=== PATIENT | female | born 1950 | race Caucasian/White ===

== ENCOUNTER 2018-04-04 20:12 | Emergency (ER) | payer MEDICARE, OTHER ==
[2018-04-04 21:40] VITALS: BP 162/62
[2018-04-04] MEDS ORDERED: Acetaminophen/HYDROcodone 325-5 MG Tab PO ONE (22:03)
--- NOTE | 2018-04-04 22:09 | EDM.PDOC ---
ED HPI GENERAL MEDICAL PROBLEM - General Chief Complaint: Lower Extremity Injury/Pain Stated Complaint: LEFT KNEE PAIN Time Seen by Provider: 04/04/18 21:50 Source of Information: Reports: Patient, Old Records History Limitations: Reports: No Limitations - History of Present Illness INITIAL COMMENTS - FREE TEXT/NARRATIVE: 67 yo female originally injured her L knee a few weeks ago [place]. Was limping mildly for most of the time since. Went to the clinic recently and was referred to ortho after an X-ray was done that showed an effusion, but no other pathology. She has been getting by with ibuprofen low dose until now. Since yesterday her pain and swelling have gotten much worse. Now is even having trouble sleeping. Her ortho appt is tomorrow. Has never walked with crutches before. Onset: Gradual Onset Date: 03/16/18 Duration: Week(s):, Getting Worse Location: Reports: Lower Extremity, Left Quality: Reports: Ache Severity: Moderate Improves with: Reports: Rest Worsens with: Reports: Movement Context: Reports: Other (see HPI) Associated Symptoms: Reports: No Other Symptoms Treatments PSYCHOLOGIST RESEARCH ASSISTANT: Reports: NSAIDS, Other (see below) Other Treatments PSYCHOLOGIST RESEARCH ASSISTANT: unknown Left Knee Pain Score (Numeric/FACES): 7 - Related Data Allergies Allergy/AdvReac Type Severity Reaction Status Date / Time nitrofurantoin Allergy Intermediate Rash Verified 02/25/16 08:12 macrocrystalline [From Macrodantin] Sulfa (Sulfonamide Allergy Intermediate Rash Verified 02/25/16 08:12 Antibiotics) Home Meds: Home Meds ALPRAZolam [Alprazolam] 0.5 mg PO PRN 02/09/14 [History] Aspirin 325 mg PO DAILY 02/09/14 [History] Escitalopram [Lexapro] 10 mg PO DAILY 02/09/14 [History] Glucosamine/MSM/Chondrt/C/Hyal [Ra Ervkqpjlqdv-Htnxkr-WHH Tab] 1 tab PO DAILY [History] Multivitamin-Min/Iron/FA/Vit K [Multi-Day Plus Minerals Tablet] 1 each PO DAILY 02/23/16 [History] [place]-3 Fatty Acids [Fish Oil] 1,000 mg PO DAILY 02/23/16 [History] Triamcinolone Acetonide 1 applic TOP PRN 02/25/16 [History] Past Medical History HEENT History: Reports: Cataract, Glaucoma, Impaired Vision, Retinal Detachment , Sinusitis, Other (See Below) Other HEENT History: sclerobuccal; wears glasses Cardiovascular History: Reports: Blood Clots/VTE/DVT, High Cholesterol, Other ( See Below) Other Cardiovascular History: pulmonary embolism Respiratory History: Reports: PE Gastrointestinal History: Reports: Colon Polyp, GERD, Hemorrhoids, Hiatal Hernia Genitourinary History: Reports: UTI, Recurrent PACKING CLERK History: Reports: Spontaneous , Other (See Below) Other PACKING CLERK History: uterine tearing; miscarriage of one twin Psychiatric History: Reports: Anxiety, Depression Endocrine/Metabolic History: Reports: Multinodular Thyroid, Obesity/BMI 30+ Hematologic History: Reports: Other (See Below) Other Hematologic History: factor 8 dissorder Oncologic (Cancer) History: Reports: Basal Cell Carcinoma Dermatologic History: Reports: Cellulitis, Eczema, Other (See Below) Other Dermatologic History: photosensitivity to sun-develops rash - Infectious Disease History Infectious Disease History: Reports: Chicken Pox, Herpes, Influenza, Measles, Mumps, Rubella, Scarlet Fever - Past Surgical History HEENT Surgical History: Reports: Adenoidectomy, Cataract Surgery, Detached Retina, Tonsillectomy Female Surgical History: Reports: Section, Tubal Ligation Endocrine Surgical History: Reports: Thyroid Biopsy Oncologic Surgical History: Reports: Other (See Below) Dermatological Surgical History: Reports: Skin Biopsy Social & Family History - Family History HEENT: Reports: Retinal Detachment Cardiac: Reports: Blood Clots/VTE/DVT, MA, Other (See Below) Other Cardiac Family History: siblings have had: pulmonary embolisms; occluded portal vein, DVT, occluded femoral vein Respiratory: Reports: Asthma, COPD, PE, Sleep Apnea GI: Reports: Diverticulitis : Reports: Other (See Below) Other Family History: Bride's disease, gangrene OBGYN: Reports: Other (See Below) Other OBGYN Family History: ruptured uterus Musculoskeletal: Reports: Arthritis, Gout Neurological: Reports: Migraines Psychiatric: Reports: Anxiety, Depression Endocrine/Metabolic: Reports: Diabetes, type II Hematologic: Reports: Bleeding Disorder, Other (See Below) Other Hematologic Family History: factor V and factor VIII Oncologic: Reports: Breast, Colon, Other (See Below) Other Oncologic Family History: squamous cell carcinoma - Tobacco Use Smoking Status *Q: Never Smoker - Caffeine Use Caffeine Use: Reports: Coffee - Recreational Drug Use Recreational Drug Use: No Review of Systems - Review of Systems Review Of Systems: See Below Constitutional: Reports: No Symptoms Musculoskeletal: Reports: Joint Pain (L knee pain/swelling), Joint Swelling (L knee) Skin: Reports: No Symptoms Neurological: Reports: No Symptoms ED EXAM, GENERAL - Physical Exam Exam: See Below Exam Limited By: No Limitations General Appearance: Alert, WD/WN, No Apparent Distress Extremities: Joint Swelling (moderate effusion L knee), Limited Range of Motion (L knee). No: Non-Tender, Pedal Edema, Increased Warmth, Redness Neurological: Alert, Oriented, CN II-XII Intact, Normal Cognition, No Motor/ Sensory Deficits Psychiatric: Normal Affect, Normal Mood Skin Exam: Warm, Dry, Intact, Normal Color, No Rash Course - Vital Signs Last Recorded V/S: Last Vital Signs Temp 35.8 C 04/04/18 21:40 Pulse 65 04/04/18 21:40 Resp 18 04/04/18 21:40 BP 162/62 H 04/04/18 21:40 Pulse Ox 99 04/04/18 21:40 - Orders/Labs/Meds Meds: Medications Discontinued Medications Generic Name Dose Route Start Last Admin Trade Name Venkata PRN Reason Stop Dose Admin Hydrocodone Bitart/Acetaminophen 2 tab 04/04/18 22:03 04/04/18 22:06 Manlius 325-5 Mg PO 04/04/18 22:04 2 tab ONETIME ONE Administration Departure - Departure Time of Disposition: 22:45 Disposition: Home, Self-Care 01 Condition: Fair Clinical Impression: Tear of meniscus of left knee Qualifiers: Tear current or old: current Encounter type: initial encounter Meniscus of knee : unspecified Meniscus tear of knee type: unspecified type Qualified Code(s): S83.207A - Unspecified tear of unspecified meniscus, current injury, left knee, initial encounter Clinical Impression: (Ruled Out): Acute meniscal tear of left knee, Traumatic tear of meniscus of knee - Discharge Information Referrals: PCP,None [Primary Care Provider] - Forms: ED Department Discharge Additional Instructions: Use [place]lius as needed for pain relief. Use the walker so that you are putting a minimum amount of weight on the affected leg. Keep your appt for tomorrow with orthopedics.
== END 2018-04-04 22:56 | disposition home or self-care (01) ==
LOC: JP.ED 20:12
DX: S83.207A Unspecified tear of unspecified meniscus, current injury, left knee, initial encounter (principal); E78.00 Pure hypercholesterolemia, unspecified; K21.9 Gastro-esophageal reflux disease without esophagitis; Z88.8 Allergy status to other drugs, medicaments and biological substances; Z88.2 Allergy status to sulfonamides; Z79.82 Long term (current) use of aspirin; Z79.899 Other long term (current) drug therapy; X58.XXXA Exposure to other specified factors, initial encounter
CPT/HCPCS: 99283; A9270

== ENCOUNTER 2021-02-25 09:48 | Day surgery (SDC) | payer MEDICARE, OTHER ==
[~2021-02-25 09:48] MED LIST: Midazolam 1 MG/ML 2 ML SDV ONE; Propofol 200 MG/20 ML SDV ONE; fentaNYL 100 MCG/2 ML SDV ONE
[2021-02-25] MEDS ORDERED: Sodium Chloride 0.9% 1,000 ML IV SCH (10:34)
[2021-02-25] MEDS ORDERED: Propofol 200 MG/20 ML SDV ONE (11:09)
[2021-02-25 12:19] VITALS: BP 122/79; PULSE 65
--- NOTE | 2021-02-26 08:10 | OR ---
DATE OF PROCEDURE: 02/25/2021 SURGEON: mOid Reyes MD PROCEDURE: Colonoscopy. FINDINGS: Normal. PREOPERATIVE DIAGNOSIS: Screening colonoscopy. POSTOPERATIVE DIAGNOSIS: Screening colonoscopy. RISKS: Risks, benefits, alternatives, and limitations including, but not limited to infection, bleeding, perforation, false positives and false negatives were explained the patient and she wished to proceed. PROCEDURE IN DETAIL: The patient was placed in left lateral decubitus position. Digital rectal exam was performed without abnormality. Scope was introduced and advanced atraumatically to the ileocecal valve. The scope was brought back through the ascending, transverse, descending colon, and retroflexed. No evidence of old or new blood. No masses. No polyps. The patient had one diverticula. No abnormalities on retroflexion. The prep was acceptable. Approximately 90% of luminal surface could be seen. Greater than 8 minutes was spent removing the scope. The patient should have repeat colonoscopy in 10 years. Omid Reyes MD /[id number]
== END 2021-02-25 12:31 | disposition home or self-care (01) ==
LOC: JP.SDS 09:48
PROVIDERS: ATTEND Surgery
DX: Z12.11 Encounter for screening for malignant neoplasm of colon (principal); K57.30 Diverticulosis of large intestine without perforation or abscess without bleeding; D66 Hereditary factor VIII deficiency; E66.9 Obesity, unspecified; Z68.36 Body mass index [BMI] 36.0-36.9, adult; Z88.2 Allergy status to sulfonamides; Z88.8 Allergy status to other drugs, medicaments and biological substances
CPT/HCPCS: J2250; J2704; J3010; J7030